=== PATIENT | male | born 1975 | race Caucasian/White ===

== ENCOUNTER 2020-12-27 05:32 | Outpatient (RCR) | payer BC, OTHER ==
[~2020-12-27] VITALS: Ht 185.4 cm; Wt 143.2 kg
[~2020-12-27 05:32] MED LIST: ATOR40TA PO; DOXY-233 PO; ESCI10TA PO; HYDR-2889 PO; LEVO500T69 PO; LISI1TAB26 PO; LISI20TA PO; MELO15TA14 PO; TPR25T PO
[2020-12-29] MEDS ORDERED: HYDR-3817 PO (16:10)
== END 2020-12-27 12:12 | disposition home or self-care (01) ==
LOC: PREOP 05:32
PROVIDERS: ATTEND Surgery
DX: Z01.812 Encounter for preprocedural laboratory examination (principal); K80.80 Other cholelithiasis without obstruction; Z20.822 Contact with and (suspected) exposure to COVID-19
CPT/HCPCS: 87635

== ENCOUNTER 2020-12-29 11:51 | Day surgery (SDC) | payer BC ==
[2020-12-29] VITALS (10 sets, daily range): BP systolic 112–144; BP diastolic 74–88
[~2020-12-29] VITALS: Ht 185.4 cm; Wt 143.2 kg
[2020-12-29] MEDS ORDERED: ceFAZolin INJECTION 1,000 MG in WATER (STERILE) FOR INJECTION 10 ML IV ONE (12:00)
[2020-12-29] MEDS: LACTATED RINGERS 1,000 ML IV PRN ×2 (12:14→16:11)
[2020-12-29] MEDS ORDERED: ceFAZolin 2 GM IV Premixed 50 ML IV ONE (12:15)
[2020-12-29] MEDS ORDERED: SEVOFLURANE (ULTANE) 15 ML INHAL SOLN ONE ×2 (12:35→16:13)
[2020-12-29] MEDS ORDERED: fentaNYL INJECTION 100 MCG/2 ML AMP ONE (12:35)
[2020-12-29] MEDS ORDERED: GLYCOPYRROLATE 0.2 MG/ML (ROBINUL) 2 ML VIAL ONE ×2 (12:35→15:11)
[2020-12-29] MEDS ORDERED: ONDANSETRON 4 MG/2 ML (SDV) Z0FRAN ONE (12:35)
[2020-12-29] MEDS ORDERED: ROCURONIUM 10 MG/ML 5 ML SYRINGE IV ONE ×2 (12:35→16:12)
[2020-12-29] MEDS ORDERED: proPOfol 200 MG/20 ML (DIPRIVAN) VIAL IV ONE ×2 (12:35→15:11)
[2020-12-29] MEDS ORDERED: LIDOCAINE PF 2% 5 ML (XYLOCAINE) VIAL ONE (12:35)
[2020-12-29] MEDS ORDERED: MIDAZOLAM 2 MG/2 ML (VERSED) VIAL ONE (12:35)
[2020-12-29] MEDS ORDERED: NEOSTIGMINE 3 MG/3 ML VIAL ONE (12:35)
[2020-12-29] MEDS ORDERED: LIDOCAINE/EPI 1%-1:200,000 (XYLOCAINE) 10 ML VIAL ONE (12:51)
[2020-12-29] MEDS ORDERED: SUCCINYLCHOLINE INJ 100 MG/5 ML SYR/VIAL ONE (14:51)
[2020-12-29] MEDS ORDERED: HYDROmorphone 2 MG/ML VIAL (DILAUDID) ONE (15:55)
--- NOTE | 2020-12-29 16:07 | Progress Note-Pre Operative ---
Pre-Operative Progress Note H&P Reviewed The H&P was reviewed, patient examined and no changes noted. Date Seen by Provider: Dec 29, 2020 Time Seen by Provider: 13:00 Date H&P Reviewed: Dec 29, 2020 Time H&P Reviewed: 13:00 Pre-Operative Diagnosis: chronic calculous cholecystitis ELIZABETH GAO MD Dec 29, 2020 16:06
--- NOTE | 2020-12-29 16:08 | Progress Note-Post Operative ---
Post-Operative Progess Note Surgeon (s)/Bander And Cellophaner Machine (s) Surgeon ELIZABETH GAO MD Bander And Cellophaner Machine: funmilayo alexander PATIENT SUPPORT ASSOCIATE Pre-Operative Diagnosis chronic calculous cholecystitis Post-Operative Diagnosis same Procedure & Operative Findings Date of Procedure 12/29/20 Procedure Performed/Findings laparoscopic cholecystectomy Anesthesia Type get Estimated Blood Loss Estimated blood loss (mL): minimal Specimens/Packing Specimens Removed gallbladder ELIZABETH GAO MD Dec 29, 2020 16:08
[2020-12-29] MEDS ORDERED: HYDR-3817 PO (16:10)
--- NOTE | 2020-12-29 16:11 | Discharge Inst-Surgical ---
D/C Lap Instructions-SIMA New, Converted, or Re-Newed RX: RX on Chart Follow Up Appt in 2 weeks Activity as tolerated No driving for 24 hours No driving while on pain medications Incentive Spirometry use every 2 hours while awake Regular Diet Symptoms to Report: Fever over 101 degree F, Nausea/Vomiting Infection Signs and Symptoms to report: Increased redness, Foul odor of wound, Increased drainage Bathing instructions: May shower Operative Area Clean/Dry; Keep incision clean/dry If any problems/questions: Contact your physician or go to Emergency Room ELIZABETH GAO MD Dec 29, 2020 16:11
[2020-12-29] MEDS ORDERED: morphine INJ 10 MG/ML 1ML (SYR OR VIAL) IVP PRN ×2 (16:15)
[2020-12-29] MEDS ORDERED: HYDROmorphone 2 MG/ML VIAL (DILAUDID) IV ONE (16:15)
[2020-12-29] MEDS ORDERED: ACETAMINOPHEN 325 MG TABLET PO PRN (16:15)
[2020-12-29] MEDS ORDERED: ONDANSETRON 4 MG/2 ML (SDV) Z0FRAN IVP PRN ×2 (16:15)
[2020-12-29] MEDS ORDERED: oxyCODONE/APAP 5/325MG (PERCOCET 5) TABLET PO PRN (16:15)
--- NOTE | 2020-12-29 16:39 | Anesthesia-General Post-Op ---
General Patient Condition Mental Status/LOC: Same as Preop Cardiovascular: Satisfactory Nausea/Vomiting: Absent Respiratory: Satisfactory Pain: Controlled Complications: Absent Post Op Complications Complications None Follow Up Care/Instructions Patient Instructions None needed. Anesthesia/Patient Condition Patient Condition Patient is doing well, no complaints, stable vital signs, no apparent adverse anesthesia problems. No complications reported per nursing. D/C home per [facility] Criteria: Yes BONI RAMIREZ CRNA Dec 29, 2020 16:39
[2020-12-29] MEDS ORDERED: oxyCODONE/APAP 5/325MG (PERCOCET 5) TABLET ONE (17:02)
--- NOTE | 2020-12-29 18:53 | OPERATIVE REPORT ---
DATE OF SERVICE: 12/29/2020 PREOPERATIVE DIAGNOSIS: Symptomatic chronic calculous cholecystitis. POSTOPERATIVE DIAGNOSIS: Symptomatic chronic calculous cholecystitis. PROCEDURE: Laparoscopic cholecystectomy. SURGEON: Elizabeth Gao MD TELEVISION PRODUCTION TECHNICIAN: Bartolome Posada APRN ANESTHESIA: General endotracheal. ESTIMATED BLOOD LOSS: Minimal. FINDINGS: Significant chronic inflammation with omental adhesions throughout the body and fundus of the gallbladder. DISPOSITION: The patient tolerated the procedure well. INDICATIONS: The patient is a 45-year-old male known to us. We had initially seen him for a scrotal abscess requiring an incision and drainage as well as an abdominal wall abscess. He reports that he developed sharp right upper quadrant abdominal pain on an intermittent basis, which was initially mild; however, has become much more frequent as well as more severe in nature. He also does report radiation of pain towards the back. He underwent an ultrasound, which did show gallstones. DESCRIPTION OF PROCEDURE: The patient was brought to the operating room, laid supine on the table. After adequate IV pain and sedative medications and general endotracheal intubation, the abdomen was prepped and draped in standard surgical fashion. A 0.5% Marcaine with epinephrine was used to anesthetize the overlying skin in the left upper abdominal quadrant and a transverse skin incision made using a 15 blade. An 0 silk suture was applied to the medial aspect incision for retraction and a Veress needle inserted with low opening pressure of 0 mmHg. The abdomen was then insufflated to 15 mmHg pressure. The Veress needle removed and a 5 mm XL trocar placed followed by a 5 mm 45-degree angle laparoscope visualizing the peritoneal cavity. A 4-quadrant abdominal exploration was performed. There was hepatomegaly with omental adhesions towards the entirety of the fundus and body of the gallbladder consistent with chronic cholecystitis. Under direct visualization, we then proceeded to place a supraumbilical 10 mm port after the skin and peritoneal lining were anesthetized using 0.5% Marcaine with epinephrine and a transverse skin incision made using a 15 blade. In a similar manner, two right upper abdominal quadrant 5 mm ports were placed. The patient was then placed in a reverse Trendelenburg position as well as plane right side up, left side down. The gallbladder was then retracted anteriorly and superiorly. We then proceeded with meticulous dissection of the omental adhesions using blunt dissection using a [place] dissector as well as electrocautery on the hook instrument. We proceeded until the hepatoduodenal ligament was identified and opened in a similar manner. The entire critical view of safety was identified including the cystic duct and artery as the only two structures going into the gallbladder as well as the cystic plate behind the proximal gallbladder. A timeout was then taken and the cystic duct and artery were clipped proximally and distally and cut with EndoShears. The gallbladder was then dissected off the liver bed using cautery on hook instrument with visualization of good hemostasis as well as no leaking ducts of Luschka. The gallbladder was removed through the 10 mm port site using an EndoCatch bag. The 10 mm port site fascia and peritoneum were then closed under direct visualization using a Ayo-Kev device and 0 Vicryl suture. The abdomen was desufflated and remaining ports removed. All skin incisions were closed using 4-0 Monocryl running subcuticular sutures. Wounds were then cleaned and covered with Dermabond. The patient tolerated the procedure well. We will start IV normal pain medication as well as a clear liquid diet. Once he is tolerating clears and has good pain control with oral pain medications, ambulating well, we will discharge him home. He will be instructed to do no heavy lifting or exertion for the next two weeks. Job ID: [id number] DocumentID: [id number] Dictated Date: 12/29/2020 16:28:43 Lead Ingot Molder Date: 12/29/2020 18:53:06 Dictated By: ELIZABETH GAO MD
== END 2020-12-29 18:05 | disposition home or self-care (01) ==
LOC: SDC 11:51
PROVIDERS: ATTEND Surgery
DX: K80.10 Calculus of gallbladder with chronic cholecystitis without obstruction (principal); I10 Essential (primary) hypertension; G47.33 Obstructive sleep apnea (adult) (pediatric); M19.90 Unspecified osteoarthritis, unspecified site; E78.00 Pure hypercholesterolemia, unspecified; F41.9 Anxiety disorder, unspecified; G43.909 Migraine, unspecified, not intractable, without status migrainosus; E66.01 Morbid (severe) obesity due to excess calories; Z68.41 Body mass index [BMI] 40.0-44.9, adult; Z79.899 Other long term (current) drug therapy; Z87.891 Personal history of nicotine dependence; Z83.3 Family history of diabetes mellitus